=== PATIENT | female | born 1975 | race American Indian/Alaskan Native ===

== ENCOUNTER 2016-08-12 12:16 | Emergency (ER) | payer BC, OTHER ==
--- NOTE | 2016-08-12 13:58 | XRay Report ---
LEFT FOOT, 2 views: History: Left foot pain The bony architecture is intact. Bony alignment is normal. No soft tissue abnormalities are seen. The joint spaces appear preserved. IMPRESSION: Normal left foot.
[2016-08-12 16:45] VITALS: BP 126/86
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
== END 2016-08-12 17:53 | disposition home or self-care (01) ==
LOC: ED 12:16
DX: S93.602A Unspecified sprain of left foot, initial encounter (principal); X50.1XXA Overexertion from prolonged static or awkward postures, initial encounter; Y93.89 Activity, other specified; Y99.8 Other external cause status; Y92.89 Other specified places as the place of occurrence of the external cause

== ENCOUNTER 2017-01-06 19:33 | Emergency (ER) | payer OTHER ==
[2017-01-07 00:08] VITALS: BP 103/64
[2017-01-07] MEDS ORDERED: TORADOL IM ONE (00:46)
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
== END 2017-01-07 01:12 | disposition home or self-care (01) ==
LOC: ED 19:33
DX: S00.531A Contusion of lip, initial encounter (principal); S16.1XXA Strain of muscle, fascia and tendon at neck level, initial encounter; V89.2XXA Person injured in unspecified motor-vehicle accident, traffic, initial encounter; Y93.9 Activity, unspecified; Y99.9 Unspecified external cause status; Y92.410 Unspecified street and highway as the place of occurrence of the external cause
CPT/HCPCS: 96372; 99282; J1885